=== PATIENT | female | born 1975 | race Caucasian/White ===

== ENCOUNTER 2016-09-21 19:52 | Inpatient (IN) | payer OTHER ==
[~2016-09-21] VITALS: Ht 170.2 cm; Wt 108.9 kg
[~2016-09-21 19:52] MED LIST: ATOR40TA28 PO; DIPH25 PO; DULO20CA30 PO; GABA400C PO; HALOD50I IM; HYDR-3965 PO; MIRT30 PO; MULT-615 PO; OS500 PO; PANT40TA25 PO; PRAZ1 PO; QUET200T PO; ZOLP5 PO
[2016-09-21] MEDS ORDERED: TRAZ-144 PO (20:10)
[2016-09-21 20:39] LABS: BASOPHILS % (AUTO) 0.3 % (0.0-2.0); EOSINOPHILS % (AUTO) 1.5 % (1.0-6.0); HEMATOCRIT 36.4 % (36-46); HEMOGLOBIN 12.5 g/dL (12.0-16.0); LYMPHOCYTES # (AUTO) 2.6 K/uL (1.0-4.8); LYMPHOCYTES % (AUTO) 33.1 % (22.0-44.0); MEAN CORPUSCULAR HEMOGLOBIN 31.6 pg (26.0-34.0); MEAN CORPUSCULAR HGB CONC 34.2 G/dL (31.0-37.0); MEAN CORPUSCULAR VOLUME 93 fL (80-100); MONOCYTES # (AUTO) 0.8 K/uL (0.1-1.0); MONOCYTES % (AUTO) 10.2 % (2.0-9.0); NEUTROPHILS # (AUTO) 4.3 K/uL (1.8-7.7); NEUTROPHILS % (AUTO) 54.9 % (40.0-70.0); PLATELET COUNT (AUTO) 222 K/uL (150-450); RED BLOOD CELL COUNT(AUTO) 3.93 MIL/uL (4.00-5.20); RED CELL DISTRIBUTION WIDTH 17.3 % (11.5-14.5); WHITE BLOOD COUNT (AUTO) 7.8 K/uL (4.5-11.0)
[2016-09-21 20:40] LABS: RBC MORPHOLOGY COMMENT ABNORMAL RBC MORPH
[2016-09-21 20:48] LABS: CALCIUM, TOTAL 8.6 mg/dL (8.8-10.5); CREATININE 1.07 mg/dL (0.60-1.30)
[2016-09-21 20:54] LABS: ALBUMIN 3.1 g/dL (3.4-5.0); BILIRUBIN,TOTAL 0.5 mg/dL (0.1-1.0); TOTAL PROTEIN, SERUM 6.9 g/dL (6.4-8.2)
[2016-09-21] MEDS ORDERED: VANCOMYCIN HCL 1 GM/D5% WATER 200 ML IV ONE (22:30)
[2016-09-21] MEDS ORDERED: HYDROmorphone 2 MG/ML SYRINGE IVP ONE (22:30)
[2016-09-21] MEDS ORDERED: ONDANSETRON HCL 4 MG/2 ML VIAL IVP ONE (22:30)
[2016-09-21 22:55] LABS: PROTHROMBIN TIME 10.1 SEC (9.4-11.6)
[2016-09-21] MEDS ORDERED: 0.9% SODIUM CHLORIDE 10 ML SYRINGE IVP PRN (23:30)
[2016-09-21] MEDS ORDERED: ONDANSETRON HCL 4 MG/2 ML VIAL IVP PRN (23:30)
[2016-09-21] MEDS ORDERED: ACETAMINOPHEN 325 MG TABLET PO PRN (23:30)
[2016-09-22] VITALS (8 sets, daily range): BP systolic 91–104; BP diastolic 48–68
[2016-09-22 00:52] LABS: APPEARANCE,URINE CLEAR (CLEAR); GLUCOSE, URINE (UA) NEGATIVE (NEGATIVE); KETONES,URINE TRACE mg/dL (NEGATIVE); LEUKOCYTE ESTERASE ,URINE NEGATIVE (NEGATIVE); OCCULT BLOOD,URINE NEGATIVE (NEGATIVE); PH,URINE 5.5 (5.0-8.0); PROTEIN,URINE NEGATIVE (NEGATIVE)
[2016-09-22 01:10] LABS: RBC,URINE 0-2 /HPF (0-2); SQUAMOUS EPITHELIAL CELL,UR Rare /LPF (None Seen)
[2016-09-22] MEDS ORDERED: OxyCODONE HCL/ACETAMINOPHEN 5-325 MG TABLET PO PRN ×2 (01:30→02:45)
[2016-09-22] MEDS ORDERED: 0.9% SODIUM CHLORIDE 10 ML SYRINGE IVP PRN (02:45)
[2016-09-22] MEDS ORDERED: ONDANSETRON HCL 4 MG/2 ML VIAL IVP PRN (02:45)
[2016-09-22] MEDS: DOCUSATE SODIUM 100 MG CAPSULE PO SCH ×3 (04:02→20:02)
[2016-09-22] MEDS: CeFAZolin 1 GM/DEXTROSE 50 ML IV SCH ×3 (04:02→19:07)
[2016-09-22] MEDS: CALCIUM OYSTER SHELL 500 MG TABLET PO SCH ×3 (04:02→20:49)
[2016-09-22] MEDS: QUEtiapine FUMARATE 200 MG TABLET PO SCH ×3 (04:03→20:01)
[2016-09-22] MEDS ORDERED: SODIUM CHLORIDE 0.9% 250 ML IV ONE (04:06)
[2016-09-22] MEDS: HEPARIN SODIUM,PORCINE 5,000 UNITS/ML VIAL SQ SCH ×3 (07:58→23:31)
[2016-09-22] MEDS: PANTOPRAZOLE SODIUM 40 MG/VIAL IVP SCH (07:58)
[2016-09-22] MEDS: ATORVASTATIN CALCIUM 40 MG TABLET PO SCH (07:59)
[2016-09-22] MEDS: MULTIVITAMINS WITH IRON TABLET PO SCH (07:59)
[2016-09-22] MEDS: GABAPENTIN 400 MG CAPSULE PO SCH ×4 (08:00→20:02)
[2016-09-22] MEDS: DULoxetine HCL 20 MG CAPSULE PO SCH (08:00)
[2016-09-22] MEDS: OxyCODONE HCL/ACETAMINOPHEN 5-325 MG TABLET PO PRN ×3 (09:16→19:57)
[2016-09-22] MEDS: MIRTAZAPINE 15 MG TABLET PO SCH (20:02)
[2016-09-22] MEDS: TraZODone HCL 50 MG TABLET PO SCH (20:14)
[2016-09-22] MEDS: PRAZOSIN HCL 1 MG CAPSULE PO SCH (21:00)
[2016-09-22] MEDS: ZOLPIDEM TARTRATE 5 MG TABLET PO PRN (23:31)
[2016-09-23] MEDS: CeFAZolin 1 GM/DEXTROSE 50 ML IV SCH ×3 (02:52→17:31)
[2016-09-23] MEDS: OxyCODONE HCL/ACETAMINOPHEN 5-325 MG TABLET PO PRN ×4 (03:14→19:41)
[2016-09-23 04:49] VITALS: BP 105/69
[2016-09-23 06:29] LABS: ANION GAP 5 mmol/L (8-16); CALCIUM, TOTAL 8.7 mg/dL (8.8-10.5); CARBON DIOXIDE 27 mmol/L (22-29); CHLORIDE 106 mmol/L (98-107); CREATININE 0.71 mg/dL (0.60-1.30); GLOMERULAR FILTR. RATE CALC > 60 mL/min (>60); POTASSIUM 4.1 mmol/L (3.5-5.1); SODIUM SERUM 138 mmol/L (136-145); UREA NITROGEN, BLOOD 12 mg/dL (7-18)
[2016-09-23 06:54] LABS: BASOPHILS # (AUTO) 0.02 K/uL (0.00-0.20); BASOPHILS % (AUTO) 0.3 % (0.0-2.0); EOSINOPHILS # (AUTO) 0.08 K/uL (0.00-0.70); EOSINOPHILS % (AUTO) 1.51 % (1.0-6.0); HEMATOCRIT 36.4 % (36-46); HEMOGLOBIN 11.9 g/dL (12.0-16.0); LYMPHOCYTES # (AUTO) 1.7 K/uL (1.0-4.8); LYMPHOCYTES % (AUTO) 33.8 % (22.0-44.0); MEAN CORPUSCULAR HEMOGLOBIN 31.4 pg (26.0-34.0); MEAN CORPUSCULAR HGB CONC 32.7 G/dL (31.0-37.0); MEAN CORPUSCULAR VOLUME 96 fL (80-100); MONOCYTES # (AUTO) 0.4 K/uL (0.1-1.0); MONOCYTES % (AUTO) 8.6 % (2.0-9.0); NEUTROPHILS # (AUTO) 2.8 K/uL (1.8-7.7); NEUTROPHILS % (AUTO) 55.8 % (40.0-70.0); PLATELET COUNT (AUTO) 208 K/uL (150-450); RED BLOOD CELL COUNT(AUTO) 3.79 MIL/uL (4.00-5.20); RED CELL DISTRIBUTION WIDTH 17.9 % (11.5-14.5); WHITE BLOOD COUNT (AUTO) 5.1 K/uL (4.5-11.0)
[2016-09-23 07:34] VITALS: BP 104/63
[2016-09-23] MEDS: HEPARIN SODIUM,PORCINE 5,000 UNITS/ML VIAL SQ SCH ×2 (08:36→15:06)
[2016-09-23] MEDS: PANTOPRAZOLE SODIUM 40 MG/VIAL IVP SCH (08:36)
[2016-09-23] MEDS: ATORVASTATIN CALCIUM 40 MG TABLET PO SCH (08:36)
[2016-09-23] MEDS: QUEtiapine FUMARATE 200 MG TABLET PO SCH ×2 (08:37→20:25)
[2016-09-23] MEDS: MULTIVITAMINS WITH IRON TABLET PO SCH (08:37)
[2016-09-23] MEDS: DULoxetine HCL 20 MG CAPSULE PO SCH (08:37)
[2016-09-23] MEDS: CALCIUM OYSTER SHELL 500 MG TABLET PO SCH ×2 (08:38→20:25)
[2016-09-23] MEDS: DOCUSATE SODIUM 100 MG CAPSULE PO SCH ×2 (08:38→20:25)
[2016-09-23] MEDS: GABAPENTIN 400 MG CAPSULE PO SCH ×4 (08:38→20:25)
[2016-09-23 15:03] VITALS: BP 100/63
[2016-09-23 19:38] VITALS: BP 114/62
[2016-09-23] MEDS: TraZODone HCL 50 MG TABLET PO SCH (20:25)
[2016-09-23] MEDS: PRAZOSIN HCL 1 MG CAPSULE PO SCH (20:26)
[2016-09-23] MEDS: MIRTAZAPINE 15 MG TABLET PO SCH (20:26)
[2016-09-24] MEDS: HEPARIN SODIUM,PORCINE 5,000 UNITS/ML VIAL SQ SCH ×2 (00:01→07:55)
[2016-09-24] MEDS: ZOLPIDEM TARTRATE 5 MG TABLET PO PRN (00:01)
[2016-09-24 00:04] VITALS: BP 113/65
[2016-09-24] MEDS: CeFAZolin 1 GM/DEXTROSE 50 ML IV SCH ×2 (02:44→11:43)
[2016-09-24 05:14] VITALS: BP 119/87
[2016-09-24] MEDS: OxyCODONE HCL/ACETAMINOPHEN 5-325 MG TABLET PO PRN ×2 (05:23→11:50)
[2016-09-24 06:39] LABS: BASOPHILS % (AUTO) 0.5 % (0.0-2.0); EOSINOPHILS % (AUTO) 1.9 % (1.0-6.0); HEMATOCRIT 34.4 % (36-46); LYMPHOCYTES # (AUTO) 2.1 K/uL (1.0-4.8); LYMPHOCYTES % (AUTO) 38.7 % (22.0-44.0); MEAN CORPUSCULAR HEMOGLOBIN 32.7 pg (26.0-34.0); MEAN CORPUSCULAR VOLUME 94 fL (80-100); MONOCYTES # (AUTO) 0.5 K/uL (0.1-1.0); MONOCYTES % (AUTO) 8.7 % (2.0-9.0); NEUTROPHILS # (AUTO) 2.8 K/uL (1.8-7.7); NEUTROPHILS % (AUTO) 50.2 % (40.0-70.0); PLATELET COUNT (AUTO) 204 K/uL (150-450); RED BLOOD CELL COUNT(AUTO) 3.68 MIL/uL (4.00-5.20); RED CELL DISTRIBUTION WIDTH 17.9 % (11.5-14.5); WHITE BLOOD COUNT (AUTO) 5.5 K/uL (4.5-11.0)
[2016-09-24 06:45] LABS: ANION GAP 5 mmol/L (8-16); CALCIUM, TOTAL 8.4 mg/dL (8.8-10.5); CARBON DIOXIDE 29 mmol/L (22-29); CHLORIDE 104 mmol/L (98-107); CREATININE 0.76 mg/dL (0.60-1.30); GLOMERULAR FILTR. RATE CALC > 60 mL/min (>60); POTASSIUM 4.1 mmol/L (3.5-5.1); SODIUM SERUM 138 mmol/L (136-145); UREA NITROGEN, BLOOD 10 mg/dL (7-18)
[2016-09-24] MEDS: GABAPENTIN 400 MG CAPSULE PO SCH (07:55)
[2016-09-24] MEDS: DULoxetine HCL 20 MG CAPSULE PO SCH (07:56)
[2016-09-24] MEDS: ATORVASTATIN CALCIUM 40 MG TABLET PO SCH (07:56)
[2016-09-24] MEDS: PANTOPRAZOLE SODIUM 40 MG/VIAL IVP SCH (07:56)
[2016-09-24] MEDS: QUEtiapine FUMARATE 200 MG TABLET PO SCH (07:57)
[2016-09-24] MEDS: MULTIVITAMINS WITH IRON TABLET PO SCH (07:57)
[2016-09-24] MEDS: CALCIUM OYSTER SHELL 500 MG TABLET PO SCH (07:57)
[2016-09-24 08:05] VITALS: BP 105/68
[2016-09-24] MEDS: DOCUSATE SODIUM 100 MG CAPSULE PO SCH (08:35)
[2016-09-24] MEDS ORDERED: SULF1TAB42 PO (11:36)
[2016-09-24 12:04] VITALS: BP 114/67
[2016-10-05] MEDS ORDERED: HALOPERIDOL DECANOATE 50 MG/ML VIAL IM SCH (09:00)
== END 2016-09-24 13:30 | disposition home or self-care (01) | DRG 383 ==
LOC: EMS 19:55 → 6N 23:15
PROVIDERS: ADMIT Internal Medicine; ATTEND Internal Medicine
DX: L03.116 Cellulitis of left lower limb (principal); E44.0 Moderate protein-calorie malnutrition; L03.115 Cellulitis of right lower limb; F31.9 Bipolar disorder, unspecified; E66.9 Obesity, unspecified; F17.210 Nicotine dependence, cigarettes, uncomplicated; F20.9 Schizophrenia, unspecified; Z91.013 Allergy to seafood; Z79.899 Other long term (current) drug therapy; Z86.73 Personal history of transient ischemic attack (TIA), and cerebral infarction without residual deficits; Z98.84 Bariatric surgery status; Z59.0 Homelessness; Z68.37 Body mass index [BMI] 37.0-37.9, adult; Z93.3 Colostomy status
CPT/HCPCS: 83605; 85379; 87040; 87081; 93970; 96365; 96375; 99285; C9113; J0690; J1170; J1644; J2405; J3370; J7050

== ENCOUNTER 2016-10-08 10:15 | Emergency (ER) | payer OTHER ==
[~2016-10-08] VITALS: Ht 170.2 cm; Wt 100.0 kg
[~2016-10-08 10:15] MED LIST changes: -DIPH25 PO; +SULF1TAB42 PO; +TRAZ-144 PO; -ZOLP5 PO
[2016-10-08] MEDS ORDERED: BACTDSB PO (11:22)
[2016-10-08] MEDS ORDERED: IOVERSOL 350 MG/ML 100 ML VIAL ONE (11:27)
[2016-10-08] MEDS ORDERED: SODIUM CHLORIDE 0.9% 100 ML ONE (11:27)
[2016-10-08] MEDS ORDERED: KETOROLAC TROMETHAMINE 30 MG/ML VIAL IVP ONE (11:30)
[2016-10-08 12:01] LABS: BASOPHILS % (AUTO) 0.5 % (0.0-2.0); EOSINOPHILS % (AUTO) 1.2 % (1.0-6.0); HEMATOCRIT 38.9 % (36-46); HEMOGLOBIN 12.8 g/dL (12.0-16.0); LYMPHOCYTES % (AUTO) 33.6 % (22.0-44.0); MEAN CORPUSCULAR HEMOGLOBIN 31.5 pg (26.0-34.0); MEAN CORPUSCULAR VOLUME 96 fL (80-100); MONOCYTES # (AUTO) 0.5 K/uL (0.1-1.0); MONOCYTES % (AUTO) 8.1 % (2.0-9.0); NEUTROPHILS # (AUTO) 3.3 K/uL (1.8-7.7); NEUTROPHILS % (AUTO) 56.6 % (40.0-70.0); PLATELET COUNT (AUTO) 267 K/uL (150-450); RED BLOOD CELL COUNT(AUTO) 4.07 MIL/uL (4.00-5.20); RED CELL DISTRIBUTION WIDTH 16.9 % (11.5-14.5); WHITE BLOOD COUNT (AUTO) 5.8 K/uL (4.5-11.0)
[2016-10-08 12:10] LABS: ANION GAP 6 mmol/L (8-16); CALCIUM, TOTAL 8.4 mg/dL (8.8-10.5); CARBON DIOXIDE 29 mmol/L (22-29); CHLORIDE 103 mmol/L (98-107); CREATININE 0.75 mg/dL (0.60-1.30); GLOMERULAR FILTR. RATE CALC > 60 mL/min (>60); POTASSIUM 4.3 mmol/L (3.5-5.1); SODIUM SERUM 138 mmol/L (136-145); UREA NITROGEN, BLOOD 7 mg/dL (7-18)
[2016-10-08 12:15] LABS: ALANINE AMINOTRANSFERASE 21 U/L (12-78); ALBUMIN 2.8 g/dL (3.4-5.0); ASPARTATE AMINOTRANSFERASE 31 U/L (15-37); BILIRUBIN,TOTAL 0.5 mg/dL (0.1-1.0); TOTAL PROTEIN, SERUM 6.9 g/dL (6.4-8.2)
[2016-10-08 14:24] VITALS: BP 135/64
== END 2016-10-08 14:27 | disposition home or self-care (01) ==
LOC: EMS 10:17
DX: K11.20 Sialoadenitis, unspecified (principal); R60.0 Localized edema; F12.90 Cannabis use, unspecified, uncomplicated; F17.210 Nicotine dependence, cigarettes, uncomplicated
CPT/HCPCS: 36415; 70491; 71010; 80053; 84703; 85025; 96374; 99285; J1885; J7050; Q9967

== ENCOUNTER 2018-04-04 08:32 | Emergency (ER) | payer OTHER ==
[~2018-04-04] VITALS: Ht 170.2 cm; Wt 80.0 kg
[~2018-04-04 08:32] MED LIST changes: -ATOR40TA28 PO; +BACTDSB PO; -DULO20CA30 PO; -HALOD50I IM; -HYDR-3965 PO; +HYDR-4061 PO; -SULF1TAB42 PO; -TRAZ-144 PO; +TRAZ-219 PO
[2018-04-04] MEDS ORDERED: MORPHINE SULFATE 4 MG/ML SYRINGE IVP ONE (11:00)
[2018-04-04] MEDS ORDERED: ONDANSETRON HCL 4 MG/2 ML VIAL IVP ONE ×2 (11:00→13:30)
[2018-04-04 11:07] LABS: BASOPHILS % (AUTO) 0.9 % (0.0-2.0); EOSINOPHILS % (AUTO) 1.6 % (1.0-6.0); HEMOGLOBIN 11.6 g/dL (12.0-16.0); LYMPHOCYTES # (AUTO) 1.5 K/uL (1.0-4.8); LYMPHOCYTES % (AUTO) 21.5 % (22.0-44.0); MEAN CORPUSCULAR HEMOGLOBIN 33.6 pg (26.0-34.0); MEAN CORPUSCULAR HGB CONC 34.2 G/dL (31.0-37.0); MEAN CORPUSCULAR VOLUME 98 fL (80-100); MONOCYTES # (AUTO) 0.3 K/uL (0.1-1.0); MONOCYTES % (AUTO) 4.2 % (2.0-9.0); NEUTROPHILS # (AUTO) 4.9 K/uL (1.8-7.7); NEUTROPHILS % (AUTO) 71.8 % (40.0-70.0); PLATELET COUNT (AUTO) 201 K/uL (150-450); RED BLOOD CELL COUNT(AUTO) 3.46 MIL/uL (4.00-5.20); RED CELL DISTRIBUTION WIDTH 17.7 % (11.5-14.5)
[2018-04-04] MEDS ORDERED: SODIUM CHLORIDE 0.9% 1,000 ML IV ONE ×2 (11:15→12:15)
[2018-04-04 11:18] LABS: ANION GAP 4 mmol/L (8-16); CALCIUM, TOTAL 7.4 mg/dL (8.8-10.5); CARBON DIOXIDE 26 mmol/L (22-29); CHLORIDE 110 mmol/L (98-107); CREATININE 0.65 mg/dL (0.60-1.30); GLOMERULAR FILTR. RATE CALC > 60 mL/min (>60); GLUCOSE,RANDOM 139 mg/dL (70-110); POTASSIUM 4.2 mmol/L (3.5-5.1); SODIUM SERUM 140 mmol/L (136-145); UREA NITROGEN, BLOOD 5 mg/dL (7-18)
[2018-04-04 11:29] LABS: ALANINE AMINOTRANSFERASE 37 U/L (12-78); ALBUMIN 1.7 g/dL (3.4-5.0); ALKALINE PHOSPHATASE 112 U/L (46-116); ASPARTATE AMINOTRANSFERASE 61 U/L (15-37); BILIRUBIN,TOTAL 0.8 mg/dL (0.1-1.0); HCG,QUANTITATIVE 1 mIU/mL (0-6); LIPASE 27 U/L (73-393); TOTAL PROTEIN, SERUM 5.1 g/dL (6.4-8.2)
[2018-04-04] MEDS ORDERED: LOPERAMIDE HCL 2 MG CAPSULE PO ONE (14:30)
[2018-04-04 15:16] VITALS: BP 112/73
== END 2018-04-04 15:08 | disposition home or self-care (01) ==
LOC: EMS 08:34
DX: R11.2 Nausea with vomiting, unspecified (principal); R19.7 Diarrhea, unspecified; R10.84 Generalized abdominal pain; F20.9 Schizophrenia, unspecified; F17.210 Nicotine dependence, cigarettes, uncomplicated; F12.90 Cannabis use, unspecified, uncomplicated; Z86.73 Personal history of transient ischemic attack (TIA), and cerebral infarction without residual deficits; Z59.0 Homelessness; Z93.3 Colostomy status
CPT/HCPCS: 36415; 80053; 83690; 84702; 85025; 96361; 96374; 96375; 96376; 99283; J2270; J2405; J7030